=== PATIENT | female | born 1985 | race Caucasian/White ===

== ENCOUNTER 2022-08-21 11:02 | Emergency (ER) | payer SELFPAY ==
[2022-08-21 11:43] LABS: BASOPHILS # (AUTO) 0.1 10^3/uL (0.0-0.1); BASOPHILS % (AUTO) 0.6 %; EOSINOPHILS # (AUTO) 0.1 10^3/uL (0.0-0.7); EOSINOPHILS % (AUTO) 0.9 %; HCT - HEMATOCRIT 44.8 % (37.0-47.0); LYMPHOCYTES # (AUTO) 1.9 10^3/uL (1.5-3.5); LYMPHOCYTES % (AUTO) 20.8 %; MEAN CORPUSCULAR HEMOGLOBIN 31.8 pg (27.0-31.0); MEAN CORPUSCULAR HGB CONC 33.5 g/dL (32.0-36.0); MEAN CORPUSCULAR VOLUME 94.9 fL (81.0-99.0); MEAN PLATELET VOLUME 9.7 fL (7.9-10.8); MONOCYTES # (AUTO) 0.5 10^3/uL (0.0-1.0); MONOCYTES % (AUTO) 4.9 %; NEUTROPHILS # (AUTO) 6.7 10^3/uL (1.5-6.6); NEUTROPHILS % (AUTO) 72.6 %; PLT - PLATELET COUNT 289 10^3/uL (130-450); RED BLOOD COUNT 4.72 10^6/uL (4.20-5.40); RED CELL DISTRIBUTION WIDTH 12.8 % (12.0-15.0); WHITE BLOOD COUNT 9.3 x10^3/uL (4.8-10.8)
[2022-08-21 11:49] LABS: BILIRUBIN,URINE NEGATIVE (NEGATIVE); GLUCOSE, URINE (UA) NEGATIVE (NEGATIVE); KETONES,URINE (UA) NEGATIVE (NEGATIVE); LEUKOCYTE ESTERASE, URINE NEGATIVE (NEGATIVE); NITRITE,URINE NEGATIVE (NEGATIVE); OCCULT BLOOD,URINE NEGATIVE (NEGATIVE); PROTEIN,URINE NEGATIVE (NEGATIVE); UROBILINOGEN,URINE 0.2 (NORMAL) E.U./dL (NORMAL)
[2022-08-21 11:51] LABS: CLARITY,URINE CLEAR (CLEAR); HCG UR QUAL NEGATIVE
[2022-08-21 11:56] LABS: ALBUMIN 4.9 g/dL (3.2-5.5); ALBUMIN/GLOBULIN RATIO 1.7 (1.0-2.2); BILIRUBIN,TOTAL 0.9 mg/dL (0.2-1.0); CALCIUM 9.7 mg/dL (8.5-10.3); CREATININE 0.5 mg/dL (0.4-1.0); POTASSIUM 3.7 mmol/L (3.5-5.0); TOTAL PROTEIN 7.8 g/dL (6.7-8.2)
[2022-08-21 13:39] VITALS: BP 118/69
[2022-08-21] MEDS ORDERED: KETOROLAC 30 MG/ML VIAL IM STA (13:44)
[2022-08-21] MEDS ORDERED: oxyCODONE 5 MG TABLET PO STA (13:44)
--- NOTE | 2022-08-21 14:04 | Ultrasound Report ---
PROCEDURE: Pelvic w/Transvag+Doppler Comp INDICATIONS: L PELVIC PAIN TECHNIQUE: Real-time scanning was performed of the pelvic organs, with image documentation. Additional endovagi nal scanning was necessary due to incomplete visualization of the adnexal and endometrial structures by transabdominal scanning. COMPARISON: None. FINDINGS: No pathologic free abdominal or pelvic fluid. Uterus: Uterus is normal in size at 8.3 x 5.1 x 5.7 cm. The endometrium measures 18 mm in combined thickness. Ovaries: Left ovary measures 3.1 x 2.0 x 2.6 cm for a volume of 8.3 mL. It contains a 1.6 cm maximum diameter simple cyst. The right ovary measures 2.7 x 1.8 x 2.9 cm, with a volume of 7.3 mL. There is duplex flow noted in both ovaries. No abnormal adnexal masses. Less than 12 follicles bilaterally. IMPRESSION: 1. No evidence of acute pelvic process. No evidence of ovarian torsion. 2. Prominent endometrium. Consider follow-up ultrasound in 6 weeks to demonstrate decrease in endomet rial thickness. Reviewed by: Antonio Liu MD on 08/21/2022 2:03 PM PDT Approved by: Antonio Liu MD on 08/21/2022 2:03 PM PDT Station ID: [id number]
--- NOTE | 2022-08-21 14:12 | ED Physician Documentation ---
PD HPI FEMALE - Stated complaint Stated Complaint: OVARY PX - Chief complaint Chief Complaint: Abd Pain - History obtained from History obtained from: Patient - History of Present Illness Timing - onset: How many months ago (2) - Additional information Additional information: 37-year-old female presents by private vehicle for 2 months of gradually worsening left-sided pelvic pain as well as right-sided lumbar back pain. Pain is cramping, constant, does not radiate.Patient states that she has a history of endometriosis and underwent laparoscopy in 2000, however she has since not had any problems with it she states that over the last few months she used to only get this pelvic pain in the week leading up to her menstrual cycle, however in the last 2 months it is chronic in nature and does not go away after her menstrual cycle ends. She has been taking ibuprofen intermittently without significant relief. She is new to the area from [place] and has not been able to follow-up with an [facility] Review of Systems Ten Systems: 10 systems reviewed and negative Constitutional: denies: Fever, Chills, Myalgias : reports: Other (Pelvic pain). denies: Dysuria, Frequency, Hesitancy, Vaginal bleeding, Irregular menses Skin: denies: Rash, Lesions, Abrasion (s) PD PAST MEDICAL HISTORY - Past Medical History Past Medical History: Yes : Other (endometriosis) - Allergies Allergies/Adverse Reactions: Allergies Allergy/AdvReac Type Severity Reaction Status Date / Time Iodinated Contrast Media Allergy Itching Verified 08/21/22 11:14 Penicillins Allergy Anaphylaxis Verified 08/21/22 11:14 PD ED PE NORMAL - Vitals Vital signs reviewed: Yes - General General: Alert and oriented X 3, No acute distress, Well developed/nourished - HEENT HEENT: Atraumatic, PERRL, EOMI - Cardiac Cardiac: RRR, No murmur, Strong equal pulses - Respiratory Respiratory: No respiratory distress, Clear bilaterally - Abdomen Abdomen: Soft, Non distended, Other (Mild L sided lower abd/pelvic pain to deep palpation) - Derm Derm: Normal color, Warm and dry, No rash - Extremities Extremities: No deformity, No tenderness to palpate, Normal ROM s pain, No edema - Neuro Neuro: Alert and oriented X 3, 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, No motor deficit, No sensory deficit, Normal speech - Psych Psych: Normal mood, Normal affect Results - Vitals Vitals: Vital Signs - 24 hr 08/21/22 08/21/22 11:14 13:38 Temperature 37.2 C 37.2 C Heart Rate 86 60 Respiratory 18 14 Rate Blood Pressure 127/80 118/69 O2 Saturation 99 98 Oxygen O2 Source Room air - Labs Labs: Laboratory Tests 08/21/22 08/21/22 08/21/22 11:34 11:38 11:38 WBC 9.3 RBC 4.72 Hgb 15.0 Hct 44.8 MCV 94.9 MCH 31.8 H MCHC 33.5 RDW 12.8 Plt Count 289 MPV 9.7 Neut # (Auto) 6.7 H Lymph # (Auto) 1.9 [place] # (Auto) 0.5 Eos # (Auto) 0.1 Baso # (Auto) 0.1 Absolute Nucleated RBC 0.00 Nucleated RBC % 0.0 Sodium 138 Potassium 3.7 Chloride 103 Carbon Dioxide 27 Anion Gap 8.0 BUN 9 Creatinine 0.5 Estimated GFR (MDRD) 138 Glucose 96 Calcium 9.7 Total Bilirubin 0.9 AST 15 ALT 12 Alkaline Phosphatase 59 Total Protein 7.8 Albumin 4.9 Globulin 2.9 Albumin/Globulin Ratio 1.7 Lipase 78 H Urine Color YELLOW Urine Clarity CLEAR Urine pH 6.0 Ur Specific [place] <=1.005 Urine Protein NEGATIVE Urine Glucose (UA) NEGATIVE Urine Ketones NEGATIVE Urine Occult Blood NEGATIVE Urine Nitrite NEGATIVE Urine Bilirubin NEGATIVE Urine Urobilinogen 0.2 (NORMAL) Ur Leukocyte Esterase NEGATIVE Ur Microscopic Review NOT INDICATED Urine Culture Comments NOT INDICATED Urine HCG, Qual NEGATIVE PD MEDICAL DECISION MAKING - ED course Complexity details: reviewed old records, reviewed results, re-evaluated patient ED course: Well-appearing patient presenting with gradually worsening pelvic and lumbar pain over the last several months. Used to be intermittent, now is constant. Abdomen is soft, physical exam is unremarkable. Labs and ultrasound imaging are relatively unremarkable, patient does have a thickened endometrium of uncertain significance. Question if patient has recurrence of her endometriosis, her last laparoscopy was greater than 20 years ago. She is also not followed up with an [facility] recently. Patient was informed of her lab and imaging findings, she was counseled to follow-up with an [facility] and given referrals to the clinic nearby. Counseled to take Tylenol and Motrin as needed for pain and to incorporate low impact exercise. Departure - Departure Disposition: 01 Home, Self Care Clinical Impression: Pelvic pain in female Condition: Stable Instructions: ED Pelvic Pain [facility] Comments: Today you are seen for pelvic pain and low back pain. Your labs and your ultrasound today were normal. I do not know the cause of your pelvic pain, however given your previous history of endometriosis I highly recommend that you follow-up with an [facility] for further investigation of your worsening pains. In the meantime I counseled you to take Tylenol and Motrin alternating as needed for symptoms. Use gentle stretching exercises to stretch out your back. Low impact exercise can also help with pelvic pains. Discharge Date/Time: 08/21/22 14:19
== END 2022-08-21 14:19 | disposition home or self-care (01) ==
LOC: ED 11:02
DX: R10.2 Pelvic and perineal pain (principal)
CPT/HCPCS: 36415; 76830; 76856; 80053; 81003; 81025; 83690; 85025; 93975; 96372; 99284; A9270; 81001; 87086